=== PATIENT | female | born 1995 | race African-American/Black ===

== ENCOUNTER 2019-11-11 07:06 | Emergency (ER) | payer SELFPAY | END 2019-11-11 07:26 | disposition home or self-care (01) | LOC: ERS 07:06 | DX: K04.7 Periapical abscess without sinus (principal); K02.9 Dental caries, unspecified; F17.210 Nicotine dependence, cigarettes, uncomplicated | CPT/HCPCS: 99282 ==

== ENCOUNTER 2022-06-07 21:26 | Emergency (ER) | payer OTHER ==
[2022-06-07] MEDS ORDERED: Ketorolac Tromethamine 30 MG/ML VIAL ONE (22:22)
== END 2022-06-07 22:34 ==
LOC: ERS 21:26
DX: S16.1XXA Strain of muscle, fascia and tendon at neck level, initial encounter (principal); S39.012A Strain of muscle, fascia and tendon of lower back, initial encounter; V49.40XA Driver injured in collision with unspecified motor vehicles in traffic accident, initial encounter; Y92.410 Unspecified street and highway as the place of occurrence of the external cause
CPT/HCPCS: 96372; 99283; J1885